=== PATIENT | male | born 1950 | race Caucasian/White ===

== ENCOUNTER 2016-08-25 05:09 | Emergency (ER) | payer OTHER ==
[2016-08-25 07:37] LABS: HEMOGLOBIN 14.9 gm/dl (14.0-17.5); RED BLOOD COUNT 4.82 M/UL (4.20-5.50); WHITE BLOOD COUNT 5.7 K/UL (4.5-11.0)
[2016-08-25 08:09] LABS: BUN/CREATININE RATIO 11 (0-10)
== END 2016-08-25 10:50 | disposition home or self-care (01) ==
LOC: ER1 05:09
PROVIDERS: Physician Assistant
DX: R10.9 Unspecified abdominal pain (principal); R35.0 Frequency of micturition; M54.5 Low back pain; I10 Essential (primary) hypertension; Z79.899 Other long term (current) drug therapy
CPT/HCPCS: 36415; 80053; 81001; 82150; 83690; 85025; 96374; 96375; 99284; J2270; J2405; J7050; Q9962

== ENCOUNTER → 2021-07-29 | Outpatient (CLI) | payer OTHER | LOC: US 10:00 | DX: R79.89 Other specified abnormal findings of blood chemistry (principal); K76.0 Fatty (change of) liver, not elsewhere classified; N28.1 Cyst of kidney, acquired | CPT/HCPCS: 76700 ==